=== PATIENT | male | born 1990 | race Caucasian/White ===

== ENCOUNTER 2017-03-24 21:12 | Emergency (ER) | payer SELFPAY ==
[~2017-03-24] VITALS: Ht 182.9 cm; Wt 69.1 kg
[~2017-03-24 21:12] MED LIST: CLIN-77 PO; HYDR-4003 PO; IBUP-1827 PO; LEVO500T16 PO; NAPR500T PO; NAPR550T44 PO; ONDA8TAB10 PO; TRAM50TA2 PO
[2017-03-24 21:19] VITALS: BP 120/78; PULSE 95; RESP 16; O2SAT 97
--- NOTE | 2017-03-24 21:35 | ED.REPORT ---
HPI-Abd Pain M Under 40 Date of Service March 24, 2017 ED Provider: The patient is a 26 year old male who presents to the emergency department complaining of RLQ abdominal pain that began 2 days ago. His pain has worsened since onset and he has also experienced nausea, vomiting, anorexia, chills, hesitancy with urination, and myalgias. He denies fever, diarrhea, constipation , dysuria, hematuria, back pain or headache. The patient states he had similar symptoms about 6 months ago and was admitted for an appendicitis. He did not have an appendectomy at that time but was treated with antibiotics instead. He was told to return if he ever had similar symptoms again. The patient also mentions chronic dental pain. His pain ranges from 8/10-09/01. Nursing Notes Stated Complaint: VOMITING, ABDOMINAL PAIN Chief Complaint: Male Abdominal Pain Nursing Notes Reviewed: Yes Allergies: Coded Allergies: Penicillins (Verified Allergy, Severe, Rash,Itching,, 07/30/16) amoxicillin (Verified Allergy, Unknown, 07/30/16) Scheduled Clindamycin (Clindamycin) 150 Mg Capsule 300 MG PO QID Levofloxacin (Levaquin) 500 Mg Tablet 500 MG PO DAILYAC Scheduled PRN Hydrocodone-Acetaminophen 5-325 mg (Hydrocodone-Acetaminophen 5-325 mg) 1 Each Tablet 1 TABLET PO Q4H PRN PRN For Pain Ibuprofen (Ibuprofen) 600 Mg Tablet 600 MG PO QID PRN PRN For Pain Naproxen (Naprosyn) 500 Mg Tablet 500 MG PO BID PRN PRN For Pain Naproxen Sodium (Naproxen Sodium) 550 Mg Tab 550 MG PO BID PRN PRN For Pain Ondansetron ODT (Ondansetron ODT) 8 Mg Tab.rapdis 4 MG PO Q4H PRN PRN For Nausea /Vomiting Ondansetron ODT (Ondansetron ODT) 8 Mg Tab.rapdis 8 MG PO Q8H PRN PRN For Nausea Tramadol (Tramadol) 50 Mg Tablet 100 MG PO Q6H PRN PRN For Pain General Time Seen by MD: 21:35 Chief Complaint Abdominal pain Hx Obtained From: Patient, Spouse Arrived By: Walk-in Sudden in Onset?: Yes Onset Occurred: Yesterday Symptom Duration: Since onset Progression since Onset: Constant, Gradually worsening Location: : RLQ Quality: Painful Severity: Current: Severe Severity: Maximum: Severe Associated with: Reports: Anorexia, Nausea, Vomiting Pertinent Negative: Pt denies other symptoms Recent Healthcare: No recent hospitalization Similar Sx Previous: Yes Past Medical History Past Medical History Nephrolithiasis Multiple visits for dental pain Asthma Past Surgical History none reported Family History Noncontributory Smoking History Current Every Day Smoker Social History Alcohol Use: "Social" Drug Use: THC Other Social History: Good social support, Local resident Ambulatory Status Independent Review of Systems Review of Systems Note: +hesitancy with urination Constitutional: Reports: Chills, Denies: Fever GI: Reports: Abdominal pain, Nausea, Vomiting, Denies: Constipation, Diarrhea Male: Denies Dysuria, Denies Hematuria Musculoskeletal: Reports: Myalgia, Denies: Back pain Complete sys rev & neg: except as marked. Ears / Nose / Throat: Reports: Mouth pain, Toothache Neurologic: Denies: Headache Physical Exam Initial Vital Signs Vital Signs (First) Date Time Temp Pulse Resp B/P Pulse Ox O2 Delivery O2 Flow Rate FiO2 03/24/17 21:19 37.1 95 16 120/78 97 Room Air Initial VS: Reviewed, Vital signs normal Head / Eyes: Atraumatic, Normocephalic, PERRL ENT: Mucous membranes moist, Conjunctiva normal, No scleral icterus Neck: Supple, Non-tender, Full range of motion Lymphatic: No lymphadenopathy Extremities: Vascular intact, Neuro intact, No swelling, No tenderness Skin: Warm, Dry, No cyanosis Neurologic: Alert, Oriented, Nonfocal Psychiatric: Mood/affect normal, Behavior normal, Normal thought content General/Constitutional: Awake, Alert, Cooperative Respiratory / Chest: Breath sounds = bilat, No respiratory distress, No rales, No rhonchi, No stridor Wheezing / Retractions: Positive: Wheezing expiratory Cardiovascular: Heart rate NL, Regular rhythm, Heart sounds NL, No gallop, No murmurs, No rubs, Peripheral circulation NL Abdomen: Soft, No rebound, BS normoactive, No distention, No hernia, No palpable mass, No pulsatile mass Tenderness/Guarding/Rebound: Positive: Tender RLQ... (with some intermittant voluntary guarding) Back: Inspection NL, Non-tender, No CVA tenderness Interpretation & Diagnostics Lab Results Interpretation Result Diagram: 03/24/17213903/24/172139 Test 03/24/17 21:40 03/24/17 21:56 White Blood Count 9.3th/mm3 (3.8-10.1) Red Blood Count 4.85mil/mm3 (4.40-5.80) Hemoglobin 14.7g/dL (13.8-17.2) Hematocrit 42.7% (41.0-50.0) Mean Corpuscular Volume 88.0fL (81-100) Mean Corpuscular Hemoglobin 30.3pg (27.0-35.0) Mean Corpuscular Hemoglobin Concent 34.4% (32.0-37.0) Red Cell Distribution Width 12.5% (12.3-15.4) Platelet Count 272bil/L (150-400) Neutrophils (%) (Auto) 68.4% (40-74) Lymphocytes (%) (Auto) 20.2% (14-46) Monocytes (%) (Auto) 9.8% (4-12) Eosinophils (%) (Auto) 1.1% (0-5) Basophils (%) (Auto) 0.3% (0-3) Hold Purple Top Tube Received (Received) Hold Blue Top Tube Received (Received) Sodium Level 137mEq/L (134-144) Potassium Level 3.9mEq/L (3.5-5.2) Chloride Level 100mEq/L (97-108) Carbon Dioxide Level 22mmol/L (18-29) Blood Urea Nitrogen 14mg/dL (6-20) Creatinine 0.84mg/dL (0.76-1.27) Estimat Glomerular Filtration Rate 116mL/min (>59) Glucose Level 90mg/dL (60-99) Calcium Level 9.8mg/dL (8.5-10.1) Magnesium Level 2.2mg/dL (1.6-2.6) Total Bilirubin 0.6mg/dL (0.0-1.2) Aspartate Amino Transf (AST/SGOT) 17U/L (0-50) Alanine Aminotransferase (ALT/SGPT) 9U/L (0-44) Alkaline Phosphatase 81U/L (25-150) Total Protein 7.8g/dL (6.4-8.4) Albumin 4.9g/dL (3.4-5.0) Lipase 16U/L (13-60) Hold [place] Top Tube Received (Received) Urine Color Yellow (YELLOW) Urine Appearance Hazy (CLEAR,HAZY) Urine pH 7.5 (5.0-8.0) Urine Specific [place] 1.015 (1.003-1.035) Urine Protein Tracemg/dL (NEG,TRACE) Urine Glucose (UA) Negativemg/dL (NEGATIVE) Urine Ketones Negativemg/dL (NEGATIVE) Urine Occult Blood Small (NEGATIVE) Urine Nitrite Negative (NEGATIVE) Urine Bilirubin Negative (NEGATIVE) Urine Urobilinogen 1.0mg/dL (NORMAL) Urine Leukocyte Esterase Negative (NEGATIVE) Urine RBC 3-10/hpf (0-2) Urine WBC 0-5/hpf (0-5) Urine Epithelial Cells Few/hpf (NONE-MOD) Urine Crystals Amorphous phosphates Urine Bacteria Few/hpf (NONE-FEW) Urine Hyaline Casts None/lpf (NONE) Urine Granular Casts None seen (NONE SEEN) Urine Waxy Casts None seen (NONE SEEN) Urine Red Blood Cell Casts None seen (NONE SEEN) Urine White Blood Cell Casts None seen (NONE SEEN) Urine Mucus Present (None Seen) Urine Trichomonas None seen (NONE SEEN) Urine Yeast None (NONE SEEN) Urinalysis Comment None Urine Culture Reflexed Not indicated CT Abd / Pelvis Interpretation No CT findings to explain the patient's clinical symptoms. Dictated by Dr. Jarocho Cortez Interpretation / Wet Read by: Interpret - Radiologist Re-Eval/Medical Decision Med Decision/Clinical Course Patient presents with nausea, vomiting and right lower quadrant pain. He stated it felt like his prior appendicitis for which he was given antibiotics and did not have surgery. He did not have any episodes of emesis here. His CT was negative for acute appendicitis. Additional differential diagnoses considered were renal colic, urinary tract infection, bowel obstruction, and gastroenteritis. Source of Hx: Old records, Friend Re-Evaluation/Progress : Time of Eval: 23:40 Re-Evaluation/Progress Note: Rechecked the patient. Discussed CT results, diagnosis, and plan for discharge. All questions were addressed. Counseled Regarding: Diagnosis, Lab results, Need for follow-up, When/why to return to ED Patient Discharge & Departure Primary Impression: Abdominal pain of unknown etiology Disposition: Home Discharge Condition All VS Reviewed: Yes Condition: Stable Patient Instructions: Acute Abdominal Pain (ED) Additional Instructions: Thank you for entrusting us with your care today. Your CT scan does not show evidence of an appendicitis. Make sure to drink plenty of fluids and eat a bland diet. Use Zofran as needed for your nausea and vomiting. Use the [place] as needed for your pain. Do not drink alcohol, drive, or work while taking this medication. Seek care for increased pain, or any other new or concerning symptoms. Referrals: NOPCP (PCP) Scribe Attestation Portions of this note were transcribed by Shahida Delgado. I, Dr. Zuniga personally performed the history, physical exam and medical decision-making; I reviewed and confirmed the accuracy of the information in the transcribed note. Signed by : Ivan Dorsey, 03/24/2017 at 2345. Marci Zuniga MD March 24, 2017 21:35 Shahida Delgado March 24, 2017 21:42
[2017-03-24] MEDS ORDERED: 0.9% Sodium Chloride 1,000 ML IV ONE (21:42)
[2017-03-24] MEDS ORDERED: Iohexol 300 mg/mL 30 mL Inj PO ONE (21:45)
[2017-03-24] MEDS ORDERED: Ondansetron 2 mg/mL 2 mL Inj IVPUSH PRN (21:45)
[2017-03-24 21:49] LABS: BASOPHILS % (AUTO) 0.3 % (0-3); EOSINOPHILS % (AUTO) 1.1 % (0-5); MONOCYTES % (AUTO) 9.8 % (4-12); Mean Corpuscular Hemoglobin 30.3 pg (27.0-35.0); NEUTROPHILS % (AUTO) 68.4 % (40-74); Platelet Count 272 bil/L (150-400)
[2017-03-24] MEDS: HYDROmorphone 0.5 mg/0.5 mL iSecure Syringe IVPUSH PRN ×2 (21:54→22:43)
[2017-03-24 22:05] LABS: APPEARANCE,URINE HAZY (CLEAR,HAZY); COLOR,URINE YELLOW (YELLOW); OCCULT BLOOD,URINE SMALL (NEGATIVE); PH,URINE 7.5 (5.0-8.0)
[2017-03-24 22:11] LABS: Magnesium 2.2 mg/dL (1.6-2.6)
[2017-03-24 23:31] VITALS: PULSE 84; RESP 18; O2SAT 95
[2017-03-24] MEDS ORDERED: ONDA8TAB10 PO (23:45)
[2017-03-24] MEDS ORDERED: _HYDROcodone/APAP 5-325 mg Tablet PO PRN (23:45)
[2017-03-24] MEDS ORDERED: _Ondansetron ODT 4 mg Tablet PO PRN (23:45)
[2017-03-25 00:04] VITALS: BP 116/67; PULSE 78; RESP 16; O2SAT 95
--- NOTE | 2017-03-25 09:30 | DRSVH ---
PROCEDURE: CT ABDOMEN AND PELVIS WITH CONTRAST (PNL-7102) INDICATIONS: RLQ pain TECHNIQUE: After the administration of oral and intravenous contrast, 5 mm thick sections acquired from the diap hragms to the symphysis. 5 mm thick coronal and sagittal reformats were performed. For radiation do se reduction, the following was used: automated exposure control, adjustment of mA and/or kV accordi ng to patient size. COMPARISON: [facility], CT, CT ABD PELVIS W CON, 08/01/2016, 10:30. [facility], CT, CT ABD PELVIS W CON, 07/30/2016, 4:03. [facility], CT, KUB - CT (ABD/PEL W/O CON T), 12/12/2014, 22:21. [facility], CT, KUB - CT (ABD/PEL W/O CONT), 08/15/2011, 21:22. [facility], CT, KUB - CT (ABD/PEL W/O CONT), 05/31/2011, 2:40. [facility], C T, KUB - CT (ABD/PEL W/O CONT), 05/15/2011, 11:26. [facility], CT, KUB - CT (ABD/PEL W/O CONT), 11/02/2010, 16:40. [facility], CT, KUB - CT (ABD/PEL W/O CONT), 12/21/2009, 10:0 0. FINDINGS: Image quality: Excellent. ABDOMEN: Lung bases: Lung bases are clear. Heart size is normal. Solid organs: Liver and spleen are normal in size and enhancement. Gallbladder is within normal ramirez its. Biliary system is non-dilated. Pancreas enhances normally. No adrenal nodules. Kidneys are n ormal in size and enhancement, without hydronephrosis. Peritoneum and bowel: Stomach, small bowel, and colon loops are normal in caliber and wall thickness . No free fluid or air. Nodes and vessels: No retroperitoneal or mesenteric adenopathy. Aorta and inferior vena cava are no rmal in caliber. Miscellaneous: No ventral hernias. PELVIS: Genitourinary: Bladder wall thickness is normal. Miscellaneous: No inguinal hernias or adenopathy. Bones: No suspicious bony lesions. No vertebral body compression fractures. IMPRESSION: No acute disease process. Dictated by: Tawnya Christianson MD, PhD on 03/25/2017 at 9:21 Approved by: Tawnya Christianson MD, PhD on 03/25/2017 at 9:25
== END 2017-03-25 00:05 | disposition home or self-care (01) ==
LOC: SED 21:12
DX: R10.31 Right lower quadrant pain (principal); J45.909 Unspecified asthma, uncomplicated; F17.200 Nicotine dependence, unspecified, uncomplicated; Z88.0 Allergy status to penicillin; Z88.1 Allergy status to other antibiotic agents
CPT/HCPCS: 36415; 74177; 80053; 81000; 83690; 83735; 85025; 96361; 96374; 96375; 96376; 99285; J1170; J2405; J7030; Q9967

== ENCOUNTER 2017-06-03 22:08 | Emergency (ER) | payer SELFPAY ==
[~2017-06-03] VITALS: Ht 182.9 cm; Wt 70.5 kg
[2017-06-03 22:09] VITALS: BP 132/86; PULSE 85; RESP 16; O2SAT 100
--- NOTE | 2017-06-03 22:48 | ED.REPORT ---
HPI-General Illness Date of Service Jun 03, 2017 ED Provider: Ernie Teran MD The patient is a 27 year old male who presents to the ED with 8/10, constant, sharp, stabbing, right-sided, lower abdominal pain for the past 2 days. Associated symptoms include nausea, vomiting and gagging. He was seen 2 months ago at [facility] for similar symptoms. An abdominal CT at the time was unremarkable. He took Ibuprofen earlier with no relief of symptoms. He denies chest pain, fever, diarrhea, shortness of breath, or blood in his stool. Nursing Notes Stated Complaint: APPENDIX HURT Chief Complaint: Male Abdominal Pain Nursing Notes Reviewed: Yes Allergies: Coded Allergies: Penicillins (Verified Allergy, Severe, Rash,Itching,, 06/03/17) amoxicillin (Verified Allergy, Unknown, 06/03/17) Scheduled Clindamycin (Clindamycin) 150 Mg Capsule 300 MG PO QID Levofloxacin (Levaquin) 500 Mg Tablet 500 MG PO DAILYAC Scheduled PRN Hydrocodone-Acetaminophen 5-325 mg (Hydrocodone-Acetaminophen 5-325 mg) 1 Each Tablet 1 TABLET PO Q4H PRN PRN For Pain Ibuprofen (Ibuprofen) 600 Mg Tablet 600 MG PO QID PRN PRN For Pain Naproxen (Naprosyn) 500 Mg Tablet 500 MG PO BID PRN PRN For Pain Naproxen Sodium (Naproxen Sodium) 550 Mg Tab 550 MG PO BID PRN PRN For Pain Ondansetron ODT (Ondansetron ODT) 8 Mg Tab.rapdis 4 MG PO Q4H PRN PRN For Nausea /Vomiting Ondansetron ODT (Ondansetron ODT) 8 Mg Tab.rapdis 8 MG PO Q8H PRN PRN For Nausea Tramadol (Tramadol) 50 Mg Tablet 100 MG PO Q6H PRN PRN For Pain General Time Seen by MD: 22:37 Chief Complaint Abdominal pain Hx Obtained From: Patient Arrived By: Walk-in Sudden in Onset?: Yes Onset Occurred: 2 days ago Symptom Duration: Since onset Location: : Abdomen Quality: Painful, Sharp, Stabbing Severity: Current: Pain level 8 out of 10 Recent Healthcare: Recent doctor visit Similar Sx Previous: Yes Past Medical History Past Medical History Nephrolithiasis Multiple visits for dental pain Asthma Past Surgical History none reported Family History Noncontributory Smoking History Current Every Day Smoker Social History Alcohol Use: "Social" Drug Use: THC Other Social History: Good social support, Local resident Ambulatory Status Independent Review of Systems Full Review of Systems Constitutional: Denies: Chills, Fever Respiratory: Denies: Shortness of breath GI: Reports: Abdominal pain, Nausea, Vomiting, Denies: Bloody/tarry stool, Diarrhea, Hematochezia Complete sys rev & neg: except as marked. Physical Exam Nursing note and vitals reviewed. Constitutional: Well-developed, well-nourished. Not diaphoretic. Head: Normocephalic and atraumatic. Mouth/Throat: Oropharynx is clear and moist. No oropharyngeal exudate. Eyes: EOM are normal. Pupils are equal, round, and reactive to light. Neck: Supple, no tracheal deviation. Cardiovascular: Normal rate, regular rhythm. Equal and intact distal pulses throughout. Pulmonary/Chest: Effort normal and breath sounds normal. No respiratory distress. Abdominal: Soft. No distension. Marked right lower quadrant tenderness, no rebound, or guarding. Musculoskeletal: Range of motion grossly intact, moving all extremities. No edema or tenderness appreciated. Neurological: AOx3. Grossly nonfocal exam. Strength and sensation intact and equal to bilateral upper and lower extremities. Skin: Warm and dry, no rashes or pallor appreciated. Psychiatric: Appropriate mood and affect. Behavior appears normal. Vital Signs Vital Signs Date Time Temp Pulse Resp B/P Pulse Ox O2 Delivery O2 Flow Rate FiO2 06/04/17 00:49 56 16 118/55 97 Room Air 06/03/17 22:09 36.8 85 16 132/86 100 Room Air Initial VS: Reviewed Interpretation & Diagnostics Lab Results Interpretation Result Diagram: 06/03/17 2310 06/03/17 2310 Test 06/03/17 23:10 06/03/17 23:50 White Blood Count 10.1th/mm3 (3.8-10.1) Red Blood Count 4.27mil/mm3 (4.40-5.80) Hemoglobin 12.9g/dL (13.8-17.2) Hematocrit 38.2% (41.0-50.0) Mean Corpuscular Volume 89.5fL (81-100) Mean Corpuscular Hemoglobin 30.2pg (27.0-35.0) Mean Corpuscular Hemoglobin Concent 33.8% (32.0-37.0) Red Cell Distribution Width 12.7% (12.3-15.4) Platelet Count 268bil/L (150-400) Neutrophils (%) (Auto) 51.9% (40-74) Lymphocytes (%) (Auto) 37.2% (14-46) Monocytes (%) (Auto) 8.1% (4-12) Eosinophils (%) (Auto) 2.2% (0-5) Basophils (%) (Auto) 0.4% (0-3) Prothrombin Time 10.6sec (8.1-12.5) Prothromb Time International Ratio 0.99ratio Sodium Level 140mEq/L (134-144) Potassium Level 3.8mEq/L (3.5-5.2) Chloride Level 103mEq/L (97-108) Carbon Dioxide Level 24mmol/L (18-29) Blood Urea Nitrogen 17mg/dL (6-20) Creatinine 0.96mg/dL (0.76-1.27) Estimat Glomerular Filtration Rate 98mL/min (>59) Glucose Level 100mg/dL (60-99) Lactic Acid Level 0.8mmol/L (0.4-2.0) Calcium Level 9.3mg/dL (8.5-10.1) Magnesium Level 2.0mg/dL (1.6-2.6) Total Bilirubin 0.2mg/dL (0.0-1.2) Aspartate Amino Transf (AST/SGOT) 20U/L (0-50) Alanine Aminotransferase (ALT/SGPT) 10U/L (0-44) Alkaline Phosphatase 103U/L (25-150) Total Protein 6.8g/dL (6.4-8.4) Albumin 4.1g/dL (3.4-5.0) Lipase 28U/L (13-60) Urine Color Yellow (YELLOW) Urine Appearance Clear (CLEAR,HAZY) Urine pH 6.5 (5.0-8.0) Urine Specific [place] 1.025 (1.003-1.035) Urine Protein Negativemg/dL (NEG,TRACE) Urine Glucose (UA) Negativemg/dL (NEGATIVE) Urine Ketones Negativemg/dL (NEGATIVE) Urine Occult Blood Negative (NEGATIVE) Urine Nitrite Negative (NEGATIVE) Urine Bilirubin Negative (NEGATIVE) Urine Urobilinogen Normalmg/dL (NORMAL) Urine Leukocyte Esterase Negative (NEGATIVE) Urine RBC 0-2/hpf (0-2) Urine WBC 0-5/hpf (0-5) Urine Epithelial Cells Occasional/hpf (NONE-MOD) Urine Crystals Amorphous urates (NONE Urine Bacteria Few/hpf (NONE-FEW) Urine Hyaline Casts None/lpf (NONE) Urine Granular Casts None seen (NONE SEEN) Urine Waxy Casts None seen (NONE SEEN) Urine Red Blood Cell Casts None seen (NONE SEEN) Urine White Blood Cell Casts None seen (NONE SEEN) Urine Mucus Present (None Seen) Urine Trichomonas None seen (NONE SEEN) Urine Yeast None (NONE SEEN) Urinalysis Comment None Urine Culture Reflexed Not indicated CT Abd / Pelvis Interpretation IMPRESSION: negative CT scan Study type: Abdominal CT no contrast Interpretation / Wet Read by: Wet read ED physician Re-Eval/Medical Decision Med Decision/Clinical Course 27-year-old male presenting to the ED for evaluation of right lower quadrant pain. He does have a history of having a mildly inflamed appendix that was treated with IV antibiotics, not removed. He has no testicular pain or tenderness that would suggest torsion. Laboratory studies grossly within normal limits; no obvious abnormalities that would account for his symptoms. He has normal white blood cell count. CT scan of the patient's abdomen and pelvis demonstrates no evidence of appendicitis, no hydronephrosis, no free air. He does have some nonspecific fluid in the bowel loops that may be consistent with a gastroenteritis or other inflammatory process, however he is well-appearing. Given this, plan discharge home with very careful return precautions including repeat examination tomorrow, PCP follow-up. Patient agreeable to the plan as stated, no further questions. Time of Eval: 01:11 Patient Status: Condition improved Counseled Regarding: Diagnosis, Lab results, Need for follow-up, When/why to return to ED Discharge & Departure Primary Impression: Abdominal pain of unknown etiology Disposition: Home Discharge Condition All VS Reviewed: Yes Condition: Stable Patient Instructions: Acute Abdominal Pain (ED) Additional Instructions: Thank you for entrusting us with your care today. The abdominal catscan does not show any abnormalities. Use Tylenol and Ibuprofen as needed for pain. Follow up with your primary care physician. Keep a close eye on your symptoms and return to the Emergency Department if you experience any new or worsening symptoms including increased pain, severe vomiting, blood in stool, blood in vomit, difficulty breathing, and fever. I hope you feel better soon! Referrals: NOPCP (PCP) [facility] Scribe Attestation Portion of this note were transcribed by Cheryl Ramesh. I, Dr. Teran, personally performed the history, physical exam, and medical decision-making: I reviewed and confirmed the accuracy for the information in the transcribed note. Signed by: alexandra Darling, 06/03/17 0803 copies to: [facility] Ernie Teran MD Jun 03, 2017 22:48 Cheryl Ramesh Jun 03, 2017 22:56
[2017-06-03] MEDS ORDERED: 0.9% Sodium Chloride 1,000 ML IV ONE (22:53)
[2017-06-03] MEDS ORDERED: Ondansetron 2 mg/mL 2 mL Inj IVPUSH PRN (22:55)
[2017-06-03] MEDS ORDERED: HYDROmorphone 0.5 mg/0.5 mL iSecure Syringe IVPUSH PRN (22:55)
[2017-06-03 23:26] LABS: BASOPHILS % (AUTO) 0.4 % (0-3); EOSINOPHILS % (AUTO) 2.2 % (0-5); MONOCYTES % (AUTO) 8.1 % (4-12); Mean Corpuscular Hemoglobin 30.2 pg (27.0-35.0); Mean Corpuscular Volume 89.5 fL (81-100); NEUTROPHILS % (AUTO) 51.9 % (40-74); Platelet Count 268 bil/L (150-400)
[2017-06-03 23:45] LABS: INR 0.99 ratio
[2017-06-04 00:08] LABS: APPEARANCE,URINE CLEAR (CLEAR,HAZY); COLOR,URINE YELLOW (YELLOW); OCCULT BLOOD,URINE NEGATIVE (NEGATIVE); PH,URINE 6.5 (5.0-8.0); UROBILINOGEN,URINE NORMAL (NORMAL)
[2017-06-04 00:49] VITALS: BP 118/55; PULSE 56; RESP 16; O2SAT 97
[2017-06-04 01:31] VITALS: BP 118/55; PULSE 56; RESP 16; O2SAT 97
--- NOTE | 2017-06-04 08:12 | DRSVH ---
PROCEDURE: CT ABDOMEN AND PELVIS WITH CONTRAST (PNL-7102) INDICATIONS: abd pain; hx of appy treated w/ abx TECHNIQUE: After the administration of intravenous contrast, 5 mm thick sections acquired from the diaphragm to the symphysis. 5 mm coronal and sagittal reformats were acquired. For radiation dose reduction, the following was used: automated exposure control, adjustment of mA and/or kV according to patient maryuri black COMPARISON: [facility], CT, CT ABD PELVIS W CON, 03/24/2017, 23:19. FINDINGS: Image quality: Excellent. ABDOMEN: Lung bases: Lung bases are clear. Heart size is normal. Solid organs: Mild periportal hepatic edema or intrahepatic biliary ductal dilatation.. Subcentimeter left lobe of the liver hepatic nodule most consistent with a simple cyst. The gallbladder is contrac kristine but otherwise radiographically normal. The pancreas, spleen, adrenal glands and kidneys are hue l. Peritoneum and bowel: Bowel loops demonstrate normal wall thickness and caliber. No free fluid or a ir. Nodes and vessels: No retroperitoneal or mesenteric adenopathy by size criteria. Aorta and inferior vena cava are normal in size. Miscellaneous: No ventral hernias. PELVIS: Genitourinary: Bladder wall thickness is normal. Miscellaneous: No inguinal hernias or adenopathy. Bones: No suspicious bony lesions. No vertebral body compression fractures. IMPRESSION: 1. Mild intrahepatic ductal dilatation or periportal edema. Please correlate with laboratory values f or confirmation. 2. Remainder of the abdomen and pelvis are within normal limits radiographically. 3. There are no urgent discrepancies with the preliminary report. Dictated by: Deepak Means M.D. on 06/04/2017 at 8:05 Approved by: Deepak Means M.D. on 06/04/2017 at 8:09
== END 2017-06-04 01:31 | disposition home or self-care (01) ==
LOC: SED 22:08
DX: R10.31 Right lower quadrant pain (principal); R11.2 Nausea with vomiting, unspecified; J45.909 Unspecified asthma, uncomplicated; F17.200 Nicotine dependence, unspecified, uncomplicated; Z88.0 Allergy status to penicillin
CPT/HCPCS: 36415; 74177; 80053; 81000; 83605; 83690; 83735; 85025; 85610; 96361; 96374; 96375; 99285; J1170; J2405; J7030; Q9967